=== PATIENT | female | born 1995 | race African-American/Black ===

== ENCOUNTER 2018-10-07 10:32 | Inpatient (IN) | payer MEDICAID ==
[~2018-10-07] VITALS: Ht 157.5 cm; Wt 67.6 kg
[~2018-10-07 10:32] MED LIST: ACET-2178 PO; INSU100I24 SQ; INSU100V9 SQ; KETO15VI22 PO; LEVO250T2 PO; ONDA4TAB11 PO; [UNRECOGNIZED DRUG - CODE] PO
[2018-10-07] MEDS ORDERED: ONDANSETRON HCL 4MG/2ML INJ IV STA (11:39)
[2018-10-07] MEDS ORDERED: SODIUM CHLORIDE 0.9% 1000ML BAG (SEPSIS BOLUS) IV ONE (11:45)
[2018-10-07] MEDS ORDERED: CEFTRIAXONE 1 G PREMIX 50 ML IV ONE (11:45)
[2018-10-07] MEDS ORDERED: FENTANYL CITRATE/PF 50MCG/ML 2ML VIAL IV ONE ×2 (11:45→17:45)
[2018-10-07 14:12] LABS: BASOPHILS % 0.2 % (0.0-2.0); EOSINOPHILS % 0.2 % (0.0-5.0); HEMATOCRIT. 37.7 % (36.0-48.0); HEMOGLOBIN. 12.5 g/dL (12.0-16.0); LYMPHOCYTES % 8.6 % (20.0-50.0); MEAN CORPUSCULAR HEMOGLOBIN 33.6 pg (28.0-32.0); MEAN CORPUSCULAR VOLUME 100.9 fL (81.0-99.0); MEAN PLATELET VOLUME 10.1 fl (7.4-10.4); MONOCYTES % 6.3 % (2.0-8.0); NEUTROPHILS % 84.7 % (40.0-76.0); PLATELET 241 x1000/uL (130-400); RED BLOOD CELL COUNT 3.74 mill/uL (4.2-5.4); RED CELL DISTRIBUTION WIDTH 14.2 % (11.6-14.6)
[2018-10-07 14:20] LABS: CHLORIDE 98 mEq/L (98-107)
[2018-10-07 14:26] LABS: ETHANOL BLOOD < 10 mg/dL
[2018-10-07 14:31] LABS: HCG SCREEN NEGATIVE
[2018-10-07 14:42] LABS: CLARITY URINE CLOUDY (CLEAR); COLOR URINE YELLOW (YELLOW); KETONES URINE 4+ (NEGATIVE); LEUKOCYTE ESTERASE URINE 2+ (NEGATIVE); NITRITE URINE NEGATIVE (NEGATIVE); OCCULT BLOOD URINE TRACE (NEGATIVE); PH URINE 5.5 (4.5-8.0); PROTEIN URINE NEGATIVE (NEGATIVE); SPECIFIC GRAVITY URINE 1.019 (1.005-1.030); UROBILINOGEN URINE 0.2 E.U./dL (0.2-1.0)
[2018-10-07] MEDS ORDERED: OXYCODONE HCL/ACETAMINOPHEN 5/325MG TABLET PO ONE (14:45)
[2018-10-07 14:52] LABS: *AMPHETAMINES SCREEN URINE NEGATIVE (NEGATIVE); *BARBITURATES SCREEN URINE NEGATIVE (NEGATIVE); *BENZODIAZEPINES SCREEN URINE NEGATIVE (NEGATIVE)
[2018-10-07 14:53] LABS: *COCAINE SCREEN URINE NEGATIVE (NEGATIVE); METHADONE URINE SCREEN NEGATIVE (NEGATIVE); OPIATES URINE SCREEN NEGATIVE (NEGATIVE); PHENCYCLIDINE URINE SCREEN NEGATIVE (NEGATIVE)
[2018-10-07 14:55] LABS: CANNABINOID URINE SCREEN PRESUMTIVE POSITIVE (NEGATIVE)
[2018-10-07 16:49] LABS: PARTIAL THROMBOPLASTIN TIME 32.2 sec (23.4-31.0); PROTHROMBIN TIME 10.2 sec (9.1-11.1)
[2018-10-07] MEDS ORDERED: SODIUM CHLORIDE 0.9% 1,000 ML IV ONE (17:25)
[2018-10-07] MEDS ORDERED: INSULIN REGULAR (HUMULIN R) 300UNITS/3ML SUBCUT ONE (17:30)
[2018-10-07] MEDS ORDERED: ONDANSETRON HCL 4MG/2ML INJ IV ONE (22:45)
[2018-10-07] MEDS ORDERED: KETOROLAC 15MG/ML VIAL IV ONE (22:45)
[2018-10-08] VITALS (27 sets, daily range): BP systolic 85–147; BP diastolic 44–82
[2018-10-08] MEDS ORDERED: HYDROCODONE/ACETAMINOPHEN 5/325MG TABLET PO PRN (00:30)
[2018-10-08] MEDS ORDERED: DEXTROSE 50% WATER 50ML SYRINGE IV PRN ×3 (00:30→09:30)
[2018-10-08] MEDS: SODIUM CHLORIDE 0.9% 1,000 ML IV SCH ×2 (01:29→08:29)
[2018-10-08] MEDS ORDERED: CEFEPIME 1,000 MG in DEXTROSE 5% WATER 50 ML IV SCH (03:00)
[2018-10-08] MEDS: KETOROLAC 15MG/ML VIAL IV SCH ×4 (05:07→22:58)
[2018-10-08 07:16] LABS: CHLORIDE 104 mEq/L (98-107)
[2018-10-08] MEDS ORDERED: INSULIN LISPRO 100 UNITS/ML SUBCUT SCH ×4 (07:20→17:20)
[2018-10-08] MEDS ORDERED: BLOOD SUGAR DIAGNOSTIC STRIP TEST SCH (07:20)
[2018-10-08] MEDS ORDERED: ONDANSETRON HCL 4MG/2ML INJ IV PRN (07:45)
[2018-10-08 08:54] LABS: BG BASE EXCESS -25.2 mmol/L (-2.0-2.0); BG CARBOXYHEMOGLOBIN 0.3 % (0.5-1.5); BG DEOXYHEMOGLOBIN 1.5 % (0.0-5.0); BG FRACTION INSPIRED OXYGEN 28; BG HCO3 ACT 2.9 mmol/L (22.0-26.0); BG METHEMOGLOBIN 0.2 % (0.0-1.5); BG OXYGEN SATURATION 98.5 % (92.0-98.5); BG PCO2 10.5 mmHg (35.0-45.0); BG PH 7.061 (7.350-7.450); BG PO2 152.5 mmHg (75.0-100.0); BG SAMPLE SITE RIGHT RADIAL; BG TOTAL HEMOGLOBIN 12.7 g/dL (12.0-18.0); BG VENT MODE NASAL CANNULA
[2018-10-08] MEDS ORDERED: INSULIN REGULAR (DRIP) 100 UNITS in SODIUM CHLORIDE 0.9% 100 ML IV SCH (09:24)
[2018-10-08] MEDS: BLOOD SUGAR DIAGNOSTIC STRIP TEST SCH ×14 (09:30→22:30)
[2018-10-08] MEDS ORDERED: SODIUM CHLORIDE 0.9% 1,000 ML IV ONE ×2 (09:30→10:21)
[2018-10-08] MEDS ORDERED: INSULIN REGULAR (DRIP) 100 UNITS in SODIUM CHLORIDE 0.9% 99 ML IV PRN (09:30)
[2018-10-08] MEDS ORDERED: INSULIN GLARGINE UD 100 UNITS/ML SYR SUBCUT SCH (10:00)
[2018-10-08] MEDS ORDERED: INSULIN REGULAR (DRIP) 100 UNITS in SODIUM CHLORIDE 0.9% 99 ML IV SCH (10:18)
[2018-10-08] MEDS ORDERED: SODIUM CHLORIDE 0.9% 1,000 ML IV NR ×2 (10:22→12:30)
[2018-10-08] MEDS: MORPHINE SULFATE 4 MG/ML CPJ (NOT FOR IM USE) IV PRN (10:28)
[2018-10-08] MEDS: SODIUM BICARBONATE 100 MEQ in SODIUM CHLORIDE 0.45% 1,000 ML IV SCH ×3 (12:18→20:43)
[2018-10-08] MEDS ORDERED: VANCOMYCIN 1,250 MG in DEXT 5% WATER 250 ML IV SCH (14:45)
[2018-10-08 16:18] LABS: CHLORIDE 113 mEq/L (98-107)
[2018-10-08] MEDS ORDERED: ENOXAPARIN 40MG/0.4ML SYR SUBCUT SCH (18:15)
[2018-10-08] MEDS: CEFEPIME 1,000 MG in DEXTROSE 5% WATER 50 ML IV SCH (18:59)
[2018-10-08] MEDS: VANCOMYCIN 1250MG in DEXTROSE 5% WATER 250ML IV SCH (23:00)
[2018-10-09] VITALS (25 sets, daily range): BP systolic 63–145; BP diastolic 19–133
[2018-10-09] MEDS: BLOOD SUGAR DIAGNOSTIC STRIP TEST SCH ×18 (00:09→21:00)
[2018-10-09 00:46] LABS: CHLORIDE 107 mEq/L (98-107)
[2018-10-09] MEDS: SODIUM BICARBONATE 100 MEQ in SODIUM CHLORIDE 0.45% 1,000 ML IV SCH ×3 (04:42→22:00)
[2018-10-09] MEDS: MORPHINE SULFATE 4 MG/ML CPJ (NOT FOR IM USE) IV PRN (04:49)
[2018-10-09 06:04] LABS: BASOPHILS % 0.1 % (0.0-2.0); EOSINOPHILS % 0.9 % (0.0-5.0); HEMATOCRIT. 30.7 % (36.0-48.0); HEMOGLOBIN. 10.4 g/dL (12.0-16.0); MEAN CORPUSCULAR HEMOGLOBIN 33.7 pg (28.0-32.0); MEAN CORPUSCULAR VOLUME 99.8 fL (81.0-99.0); MEAN PLATELET VOLUME 8.7 fl (7.4-10.4); MONOCYTES % 10.4 % (2.0-8.0); NEUTROPHILS % 74.6 % (40.0-76.0); PLATELET 243 x1000/uL (130-400); RED BLOOD CELL COUNT 3.07 mill/uL (4.2-5.4); RED CELL DISTRIBUTION WIDTH 14.1 % (11.6-14.6)
[2018-10-09 06:05] LABS: CHLORIDE 105 mEq/L (98-107)
[2018-10-09] MEDS: KETOROLAC 15MG/ML VIAL IV SCH ×3 (07:41→21:56)
[2018-10-09] MEDS: CEFEPIME 1,000 MG in DEXTROSE 5% WATER 50 ML IV SCH ×2 (07:42→17:54)
[2018-10-09] MEDS ORDERED: KCL 20MEQ/100ML PREMIX 100 ML IV SCH ×2 (10:00→12:00)
[2018-10-09] MEDS: VANCOMYCIN 1250MG in DEXTROSE 5% WATER 250ML IV SCH ×2 (11:18→22:54)
[2018-10-09 14:02] LABS: CHLORIDE 105 mEq/L (98-107)
[2018-10-09] MEDS ORDERED: DEXTROSE 50% WATER 50ML SYRINGE IV PRN (15:15)
[2018-10-09] MEDS ORDERED: POTASSIUM CHLORIDE 20MEQ TABLET SR PO SCH (16:00)
[2018-10-09] MEDS ORDERED: POTASSIUM CHLORIDE 20MEQ TABLET SR PO NR (17:00)
[2018-10-09] MEDS: INSULIN LISPRO 100 UNITS/ML SUBCUT SCH ×2 (17:56→21:50)
[2018-10-09] MEDS ORDERED: INSULIN REGULAR (DRIP) 100 UNITS in SODIUM CHLORIDE 0.9% 99 ML IV SCH (23:39)
[2018-10-09] MEDS ORDERED: BLOOD SUGAR DIAGNOSTIC STRIP TEST SCH (23:45)
[2018-10-10] MEDS ORDERED: CEFAZOLIN 2000MG PREMIX 50 ML IV SCH (02:00)
[2018-10-10 04:00] VITALS: BP 115/78
[2018-10-10] MEDS: SODIUM BICARBONATE 100 MEQ in SODIUM CHLORIDE 0.45% 1,000 ML IV SCH (05:50)
[2018-10-10] MEDS: BLOOD SUGAR DIAGNOSTIC STRIP TEST SCH ×2 (06:00→12:24)
[2018-10-10] MEDS: INSULIN LISPRO 100 UNITS/ML SUBCUT SCH ×2 (06:02→12:28)
[2018-10-10] MEDS: KETOROLAC 15MG/ML VIAL IV SCH ×2 (06:03→14:00)
[2018-10-10 07:48] LABS: BASOPHILS % 0.5 % (0.0-2.0); EOSINOPHILS % 1.8 % (0.0-5.0); HEMATOCRIT. 30.7 % (36.0-48.0); HEMOGLOBIN. 10.5 g/dL (12.0-16.0); LYMPHOCYTES % 25.3 % (20.0-50.0); MEAN CORPUSCULAR VOLUME 99.8 fL (81.0-99.0); MEAN PLATELET VOLUME 8.8 fl (7.4-10.4); MONOCYTES % 8.5 % (2.0-8.0); NEUTROPHILS % 63.9 % (40.0-76.0); PLATELET 242 x1000/uL (130-400); RED BLOOD CELL COUNT 3.07 mill/uL (4.2-5.4); RED CELL DISTRIBUTION WIDTH 13.7 % (11.6-14.6)
[2018-10-10 08:00] VITALS: BP 119/80
[2018-10-10] MEDS ORDERED: CEFAZOLIN 2000MG in DEXTROSE 5% WATER 100ML IV SCH (10:00)
[2018-10-10] MEDS: VANCOMYCIN 1250MG in DEXTROSE 5% WATER 250ML IV SCH (11:44)
[2018-10-10 12:00] VITALS: BP 116/74
[2018-10-10 12:20] LABS: CHLORIDE 98 mEq/L (98-107)
[2018-10-10] MEDS ORDERED: INSULIN LISPRO 100 UNITS/ML SUBCUT SCH (14:15)
[2018-10-10 16:00] VITALS: BP_SYST 114; BP_SYST 118; BP_DIAS 70
[2018-10-10] MEDS ORDERED: VANCOMYCIN 1 G PREMIX 200 ML IV SCH (22:00)
[2018-10-10] MEDS ORDERED: INSULIN GLARGINE UD 100 UNITS/ML SYR SUBCUT SCH (22:00)
== END 2018-10-10 16:30 | disposition home or self-care (01) | DRG 720 ==
LOC: ER 10:32 → 6EST 15:15 → EDBEDREQ 15:17 → ENRESERV 22:42 → CVICU 10-08 08:52 → 8WST 10-09 23:36
PROVIDERS: ADMIT Internal Medicine; ATTEND Internal Medicine
DX: A41.9 Sepsis, unspecified organism (principal); E10.10 Type 1 diabetes mellitus with ketoacidosis without coma; N12 Tubulo-interstitial nephritis, not specified as acute or chronic; Z79.1 Long term (current) use of non-steroidal anti-inflammatories (NSAID); Z79.899 Other long term (current) drug therapy; Z79.4 Long term (current) use of insulin; Z87.440 Personal history of urinary (tract) infections; Z79.2 Long term (current) use of antibiotics
CPT/HCPCS: 36415; 36600; 71045; 74176; 80048; 80202; 80305; 81025; 82010; 82375; 82805; 82962; 83036; 83605; 83880; 84132; 84145; 84484; 84703; 87077; 87186; 93005; 96361; 96365; 96366; 96375; 96376; 99291; G0482; J0690; J0692; J0696; J1650; J1815; J1885; J2270; J2405; J3010; J3370; J3480; J3490; J7030; J7050; J7060

== ENCOUNTER 2019-01-18 06:08 | Emergency (ER) | payer MEDICAID ==
[~2019-01-18] VITALS: Ht 157.5 cm; Wt 67.0 kg
[2019-01-18 07:09] LABS: CLARITY URINE CLEAR (CLEAR); COLOR URINE YELLOW (YELLOW); KETONES URINE 2+ (NEGATIVE); LEUKOCYTE ESTERASE URINE NEGATIVE (NEGATIVE); NITRITE URINE NEGATIVE (NEGATIVE); OCCULT BLOOD URINE NEGATIVE (NEGATIVE); PH URINE 5.5 (4.5-8.0); PROTEIN URINE NEGATIVE (NEGATIVE); SPECIFIC GRAVITY URINE 1.027 (1.005-1.030); UROBILINOGEN URINE 0.2 E.U./dL (0.2-1.0)
[2019-01-18] MEDS ORDERED: SODIUM CHLORIDE 0.9% 1,000 ML IV ONE ×2 (07:14→07:53)
[2019-01-18 07:38] LABS: BASOPHILS % 0.5 % (0.0-2.0); EOSINOPHILS % 1.3 % (0.0-5.0); HEMATOCRIT. 32.6 % (36.0-48.0); HEMOGLOBIN. 10.7 g/dL (12.0-16.0); LYMPHOCYTES % 21.1 % (20.0-50.0); MEAN CORPUSCULAR VOLUME 103.6 fL (81.0-99.0); MEAN PLATELET VOLUME 8.7 fl (7.4-10.4); MONOCYTES % 6.7 % (2.0-8.0); NEUTROPHILS % 70.4 % (40.0-76.0); PLATELET 287 x1000/uL (130-400); RED BLOOD CELL COUNT 3.14 mill/uL (4.2-5.4); RED CELL DISTRIBUTION WIDTH 15.7 % (11.6-14.6)
[2019-01-18 07:41] LABS: CHLORIDE 102 mEq/L (98-107)
[2019-01-18 07:47] LABS: HCG SCREEN NEGATIVE
[2019-01-18] MEDS ORDERED: INSULIN REGULAR (DRIP) 100 UNITS in SODIUM CHLORIDE 0.9% 99 ML IV SCH (08:00)
[2019-01-18 09:21] LABS: BG BASE EXCESS -3.9 mmol/L (-2.0-2.0); BG CARBOXYHEMOGLOBIN 0.6 % (0.5-1.5); BG FRACTION INSPIRED OXYGEN 21; BG HCO3 ACT 18.5 mmol/L (22.0-26.0); BG METHEMOGLOBIN 0.2 % (0.0-1.5); BG OXYHEMOGLOBIN 97.2 % (94.0-97.0); BG PCO2 26.5 mmHg (35.0-45.0); BG PH 7.462 (7.350-7.450); BG PO2 110.4 mmHg (75.0-100.0); BG SAMPLE SITE RIGHT BRACHIAL; BG TOTAL HEMOGLOBIN 12.2 g/dL (12.0-18.0); BG VENT MODE ROOM AIR
[2019-01-18] MEDS ORDERED: IPRATROPIUM/ALBUTEROL 0.5-3(2.5)MG/3ML NEB INH PRN (12:00)
[2019-01-18] MEDS ORDERED: ONDANSETRON HCL 4MG/2ML INJ IV PRN (12:00)
[2019-01-18] MEDS ORDERED: CLONIDINE 0.1MG TABLET PO PRN (12:00)
[2019-01-18] MEDS ORDERED: ACETAMINOPHEN 325MG TABLET PO PRN (12:00)
[2019-01-18] MEDS ORDERED: HYDROCODONE/ACETAMINOPHEN 5/325MG TABLET PO PRN (12:00)
[2019-01-18] MEDS ORDERED: DOCUSATE SODIUM 100MG CAPSULE PO PRN (12:00)
[2019-01-18] MEDS ORDERED: LORAZEPAM 0.5MG TABLET PO PRN (12:00)
[2019-01-18 12:27] LABS: CHLORIDE 107 mEq/L (98-107)
[2019-01-18] MEDS: INSULIN LISPRO 100 UNITS/ML SUBCUT SCH ×2 (12:50→14:13)
[2019-01-18 13:09] LABS: FOLIC ACID (FOLATE) SERUM 16.8 ng/mL (>5.38)
[2019-01-18] MEDS ORDERED: DEXTROSE 50% WATER 50ML SYRINGE IV PRN (14:15)
[2019-01-18 15:59] LABS: *AMPHETAMINES SCREEN URINE NEGATIVE (NEGATIVE); *BARBITURATES SCREEN URINE NEGATIVE (NEGATIVE); *BENZODIAZEPINES SCREEN URINE NEGATIVE (NEGATIVE); OPIATES URINE SCREEN NEGATIVE (NEGATIVE); PHENCYCLIDINE URINE SCREEN NEGATIVE (NEGATIVE)
[2019-01-18 16:00] LABS: *COCAINE SCREEN URINE NEGATIVE (NEGATIVE); METHADONE URINE SCREEN NEGATIVE (NEGATIVE)
[2019-01-18 16:02] LABS: CANNABINOID URINE SCREEN PRESUMTIVE POSITIVE (NEGATIVE)
[2019-01-18 16:09] LABS: CHLORIDE 109 mEq/L (98-107)
[2019-01-18 16:15] LABS: TOTAL IRON BINDING CAPACITY 331 ug/dL (250-450)
[2019-01-18] MEDS ORDERED: BLOOD SUGAR DIAGNOSTIC STRIP TEST SCH (17:00)
[2019-01-18 18:20] LABS: CHLORIDE 108 mEq/L (98-107)
[2019-01-18] MEDS ORDERED: INSULIN LISPRO (LOW DOSE) 100 UNITS/ML SUBCUT SCH (18:20)
[2019-01-18 18:25] VITALS: BP 130/80
== END 2019-01-18 13:00 | disposition left against medical advice (07) ==
LOC: ER 06:08 → EDBEDREQTM 08:47 → EDBEDREQ 08:47 → ER 13:00 → EDBEDREQTM 13:59 → EDBEDREQSVC 13:59 → EDBEDREQ 16:32 → CANBEDREQ 19:04
DX: E11.10 Type 2 diabetes mellitus with ketoacidosis without coma (principal); R11.2 Nausea with vomiting, unspecified; R51 Headache; F12.10 Cannabis abuse, uncomplicated; Z79.4 Long term (current) use of insulin; Z79.899 Other long term (current) drug therapy
CPT/HCPCS: 36415; 36600; 71045; 80048; 80053; 80305; 81003; 81025; 82010; 82375; 82607; 82728; 82746; 82805; 82962; 83540; 83550; 83690; 84703; 85025; 93005; 96361; 96365; 96366; 96372; 99291; J1815; J7030; J7050; Z7610

== ENCOUNTER 2020-02-03 09:26 | Inpatient (IN) | payer MEDICAID ==
[~2020-02-03] VITALS: Ht 160 cm; Wt 70.3 kg
[~2020-02-03 09:26] MED LIST changes: -ACET-2178 PO; +TOPUD PO
[2020-02-03] MEDS ORDERED: INSU100I24 SQ (09:41)
[2020-02-03] MEDS ORDERED: [UNRECOGNIZED DRUG - OTHER] (09:41)
[2020-02-03] MEDS ORDERED: INSU100V34 SQ (09:41)
[2020-02-03] MEDS ORDERED: SODIUM CHLORIDE 0.9% 1,000 ML IV ONE (10:31)
[2020-02-03] MEDS ORDERED: ACETAMINOPHEN 325MG TABLET PO ONE (10:45)
[2020-02-03 10:51] LABS: BASOPHILS % 0.5 % (0.0-2.0); EOSINOPHILS % 0.2 % (0.0-5.0); HEMATOCRIT. 32.4 % (36.0-48.0); LYMPHOCYTES % 8.2 % (20.0-50.0); MEAN CORPUSCULAR HEMOGLOBIN 33.4 pg (28.0-32.0); MEAN CORPUSCULAR VOLUME 98.5 fL (81.0-99.0); MEAN PLATELET VOLUME 8.8 fl (7.4-10.4); MONOCYTES % 11.5 % (2.0-8.0); NEUTROPHILS % 79.6 % (40.0-76.0); PLATELET 263 x1000/uL (130-400); RED BLOOD CELL COUNT 3.29 mill/uL (4.2-5.4); RED CELL DISTRIBUTION WIDTH 16.7 % (11.6-14.6)
[2020-02-03 10:53] LABS: CLARITY URINE CLEAR (CLEAR); COLOR URINE YELLOW (YELLOW); KETONES URINE 4+ (NEGATIVE); LEUKOCYTE ESTERASE URINE TRACE (NEGATIVE); NITRITE URINE NEGATIVE (NEGATIVE); OCCULT BLOOD URINE 1+ (NEGATIVE); PH URINE 5.5 (4.5-8.0); PROTEIN URINE 2+ (NEGATIVE); SPECIFIC GRAVITY URINE 1.021 (1.005-1.030)
[2020-02-03 10:57] LABS: CHLORIDE 96 mEq/L (98-107)
[2020-02-03] MEDS ORDERED: CEFTRIAXONE 1 G PREMIX 50 ML IV ONE (11:45)
[2020-02-03] MEDS ORDERED: INSULIN REGULAR (HUMULIN R) 300UNITS/3ML IV ONE (12:00)
[2020-02-03 12:04] LABS: BG BASE EXCESS -12.3 mmol/L (-2.0-2.0); BG CARBOXYHEMOGLOBIN 0.3 % (0.5-1.5); BG DEOXYHEMOGLOBIN 1.9 % (0.0-5.0); BG FRACTION INSPIRED OXYGEN 21; BG HCO3 ACT 11.4 mmol/L (22.0-26.0); BG METHEMOGLOBIN 0.2 % (0.0-1.5); BG OXYGEN SATURATION 98.1 % (92.0-98.5); BG OXYHEMOGLOBIN 97.6 % (94.0-97.0); BG PH 7.354 (7.350-7.450); BG PO2 109.4 mmHg (75.0-100.0); BG SAMPLE SITE RIGHT BRACHIAL; BG TOTAL HEMOGLOBIN 10.5 g/dL (12.0-18.0); BG VENT MODE ROOM AIR
[2020-02-03 13:30] VITALS: BP 132/77
[2020-02-03] MEDS ORDERED: SODIUM BICARBONATE 8.4% 1 MEQ/ML 50ML SYR IV NR (13:34)
[2020-02-03] MEDS ORDERED: DEXTROSE 50% WATER 50ML SYRINGE IV PRN (14:15)
[2020-02-03] MEDS: SODIUM CHLORIDE 0.9% 1,000 ML IV SCH (14:30)
[2020-02-03 14:41] VITALS: BP 132/77
[2020-02-03] MEDS ORDERED: ACET650T37 PO (15:49)
[2020-02-03] MEDS ORDERED: ONDA4TAB5 PO (15:50)
[2020-02-03 16:06] VITALS: BP 128/80
[2020-02-03] MEDS ORDERED: MORPHINE SULFATE 2 MG/ML CPJ (NOT FOR IM USE) IV NR (16:30)
[2020-02-03] MEDS ORDERED: CEFTRIAXONE SODIUM 1 G/VIAL IM SCH (16:30)
[2020-02-03] MEDS: ONDANSETRON HCL 4MG/2ML INJ IV PRN ×2 (16:53→21:09)
[2020-02-03] MEDS ORDERED: ONDANSETRON HCL 4MG/2ML INJ IV PRN (17:15)
[2020-02-03] MEDS ORDERED: CLONIDINE 0.1MG TABLET PO PRN (17:15)
[2020-02-03] MEDS ORDERED: ZOLPIDEM TARTRATE 5MG TABLET PO PRN (17:15)
[2020-02-03] MEDS ORDERED: POTASSIUM CHLORIDE 20MEQ TABLET SR PO NR (17:15)
[2020-02-03] MEDS: CITRIC ACID/SODIUM CITRATE SOLN 30ML UDC PO SCH (17:22)
[2020-02-03] MEDS: BLOOD SUGAR DIAGNOSTIC STRIP TEST SCH ×2 (17:59→21:09)
[2020-02-03] MEDS: INSULIN LISPRO 100 UNITS/ML SUBCUT SCH ×2 (18:01→21:18)
[2020-02-03 18:40] LABS: HEMATOCRIT. 32.2 % (36.0-48.0); HEMOGLOBIN. 10.8 g/dL (12.0-16.0); MEAN CORPUSCULAR HEMOGLOBIN 33.7 pg (28.0-32.0); MEAN CORPUSCULAR VOLUME 100.7 fL (81.0-99.0); MEAN PLATELET VOLUME 8.8 fl (7.4-10.4); PLATELET 255 x1000/uL (130-400)
[2020-02-03 18:44] LABS: CHLORIDE 100 mEq/L (98-107)
[2020-02-03 19:14] LABS: PLATELET ESTIMATE NORMAL
[2020-02-03 20:00] VITALS: BP 122/76
[2020-02-03] MEDS: ENOXAPARIN 40MG/0.4ML SYR SUBCUT SCH (21:09)
[2020-02-03] MEDS: KETOROLAC 30MG/ML VIAL IV SCH (22:28)
[2020-02-03] MEDS: ACETAMINOPHEN 325MG TABLET PO PRN (22:29)
[2020-02-03] MEDS: INSULIN GLARGINE UD 100 UNITS/ML SYR SUBCUT SCH (22:38)
[2020-02-04] VITALS: BP 105/63
[2020-02-04 04:00] VITALS: BP 111/72
[2020-02-04] MEDS: SODIUM CHLORIDE 0.9% 1,000 ML IV SCH ×3 (04:21→22:24)
[2020-02-04] MEDS: KETOROLAC 30MG/ML VIAL IV SCH ×3 (06:16→22:13)
[2020-02-04 06:22] LABS: HEMATOCRIT. 30.6 % (36.0-48.0); HEMOGLOBIN. 10.4 g/dL (12.0-16.0); MEAN CORPUSCULAR HEMOGLOBIN 33.4 pg (28.0-32.0); PLATELET 242 x1000/uL (130-400); RED BLOOD CELL COUNT 3.12 mill/uL (4.2-5.4); RED CELL DISTRIBUTION WIDTH 16.4 % (11.6-14.6)
[2020-02-04] MEDS: BLOOD SUGAR DIAGNOSTIC STRIP TEST SCH ×4 (06:30→21:00)
[2020-02-04 06:44] LABS: CHLORIDE 103 mEq/L (98-107)
[2020-02-04 08:00] VITALS: BP 108/63
[2020-02-04] MEDS: CITRIC ACID/SODIUM CITRATE SOLN 30ML UDC PO SCH ×3 (08:41→17:00)
[2020-02-04] MEDS: INSULIN LISPRO 100 UNITS/ML SUBCUT SCH ×4 (08:46→22:22)
[2020-02-04] MEDS ORDERED: CEFTRIAXONE SODIUM 1 G/VIAL IV SCH (09:00)
[2020-02-04] MEDS: ACETAMINOPHEN 325MG TABLET PO PRN ×2 (09:08→19:40)
[2020-02-04 11:40] LABS: PLATELET ESTIMATE NORMAL
[2020-02-04 12:00] VITALS: BP 133/66
[2020-02-04] MEDS ORDERED: CEFTRIAXONE 1 G PREMIX 50 ML IV SCH (12:00)
[2020-02-04] MEDS: CEFEPIME 2,000 MG in DEXT 5% WATER 100 ML IV SCH (12:55)
[2020-02-04 15:52] VITALS: BP 122/83
[2020-02-04 20:17] VITALS: BP 127/85
[2020-02-04] MEDS: ENOXAPARIN 40MG/0.4ML SYR SUBCUT SCH (20:56)
[2020-02-04] MEDS: INSULIN GLARGINE UD 100 UNITS/ML SYR SUBCUT SCH (22:22)
[2020-02-05] VITALS (7 sets, daily range): BP systolic 117–130; BP diastolic 72–92
[2020-02-05] MEDS: CEFEPIME 2,000 MG in DEXT 5% WATER 100 ML IV SCH ×2 (00:25→12:37)
[2020-02-05] MEDS: HYDROCODONE/ACETAMINOPHEN 5/325MG TABLET PO PRN ×2 (01:04→13:34)
[2020-02-05] MEDS: KETOROLAC 30MG/ML VIAL IV SCH ×2 (05:20→12:37)
[2020-02-05] MEDS: BLOOD SUGAR DIAGNOSTIC STRIP TEST SCH ×3 (07:51→17:20)
[2020-02-05] MEDS: CITRIC ACID/SODIUM CITRATE SOLN 30ML UDC PO SCH ×3 (08:29→17:00)
[2020-02-05] MEDS: INSULIN LISPRO 100 UNITS/ML SUBCUT SCH ×3 (08:31→17:50)
[2020-02-05] MEDS: ONDANSETRON HCL 4MG/2ML INJ IV PRN (09:56)
[2020-02-05] MEDS: ACETAMINOPHEN 325MG TABLET PO PRN (09:57)
[2020-02-05] MEDS: SODIUM CHLORIDE 0.9% 1,000 ML IV SCH (12:37)
== END 2020-02-05 18:01 | disposition home or self-care (01) | DRG 720 ==
LOC: ER 09:26 → 6WST 12:04 → ENRESERV 12:41
PROVIDERS: ADMIT Internal Medicine; ATTEND Internal Medicine
DX: A41.9 Sepsis, unspecified organism (principal); E10.65 Type 1 diabetes mellitus with hyperglycemia; E87.1 Hypo-osmolality and hyponatremia; E86.9 Volume depletion, unspecified; E87.6 Hypokalemia; D64.9 Anemia, unspecified; N10 Acute pyelonephritis
CPT/HCPCS: 36415; 36600; 71045; 74176; 80048; 80053; 80061; 81003; 82375; 82533; 82805; 82962; 83036; 83930; 84132; 84145; 84443; 85025; 93970; 96361; 96365; 96375; 99291; J0692; J0696; J1650; J1815; J1885; J2270; J2405; J3490; J7030; J7060

== ENCOUNTER 2021-09-28 08:15 | Emergency (ER) | payer MEDICAID ==
[~2021-09-28] VITALS: Ht 157.5 cm; Wt 70.0 kg
[~2021-09-28 08:15] MED LIST changes: +ACET650T37 PO; +INSU100V34 SQ; -INSU100V9 SQ; -KETO15VI22 PO; -ONDA4TAB11 PO; +ONDA4TAB5 PO; -TOPUD PO; -[UNRECOGNIZED DRUG - CODE] PO
[2021-09-28] MEDS ORDERED: SODIUM CHLORIDE 0.9% 1,000 ML IV ONE (08:45)
[2021-09-28] MEDS ORDERED: CEFTRIAXONE 1 G PREMIX 50 ML IV ONE (08:45)
[2021-09-28 08:48] LABS: CLARITY URINE CLOUDY (CLEAR); COLOR URINE YELLOW (YELLOW); KETONES URINE NEGATIVE (NEGATIVE); LEUKOCYTE ESTERASE URINE 2+ (NEGATIVE); NITRITE URINE POSITIVE (NEGATIVE); OCCULT BLOOD URINE 3+ (NEGATIVE); PROTEIN URINE NEGATIVE (NEGATIVE); SPECIFIC GRAVITY URINE 1.017 (1.005-1.030); UROBILINOGEN URINE 0.2 E.U./dL (0.2-1.0)
[2021-09-28 09:06] LABS: BASOPHILS % 0.6 % (0.0-2.0); CHLORIDE 104 mEq/L (98-107); EOSINOPHILS % 2.4 % (0.0-5.0); HEMATOCRIT. 35.6 % (36.0-48.0); HEMOGLOBIN. 12.3 g/dL (12.0-16.0); LYMPHOCYTES % 29.5 % (20.0-50.0); MEAN CORPUSCULAR HEMOGLOBIN 36.2 pg (28.0-32.0); MEAN CORPUSCULAR VOLUME 104.6 fL (81.0-99.0); MEAN PLATELET VOLUME 8.4 fl (7.4-10.4); MONOCYTES % 8.1 % (2.0-8.0); NEUTROPHILS % 59.4 % (40.0-76.0); PLATELET 292 x1000/uL (130-400); RED CELL DISTRIBUTION WIDTH 13.8 % (11.6-14.6)
[2021-09-28 09:13] LABS: BETA HYDROXYBUTYRATE 0.1 mMol/L (0.0-0.3)
[2021-09-28] MEDS ORDERED: CEFI400C MT (09:50)
[2021-09-28] MEDS ORDERED: ONDA4TAB5 MT (09:51)
[2021-09-28] MEDS ORDERED: HYDR-4001 MT (09:51)
[2021-09-28 10:51] VITALS: BP 127/83
== END 2021-09-28 10:54 | disposition home or self-care (01) ==
LOC: ER 08:15
DX: N39.0 Urinary tract infection, site not specified (principal); E10.65 Type 1 diabetes mellitus with hyperglycemia; F12.10 Cannabis abuse, uncomplicated; I10 Essential (primary) hypertension; Z79.899 Other long term (current) drug therapy
CPT/HCPCS: 36415; 80053; 81003; 82010; 83690; 83880; 84484; 85025; 87077; 87086; 87186; 96365; 99284; J0696; J7030

== ENCOUNTER 2022-05-25 02:27 | Emergency (ER) | payer MEDICAID ==
[~2022-05-25] VITALS: Ht 157.5 cm; Wt 65.3 kg
[~2022-05-25 02:27] MED LIST changes: +ACET-3163 PO; -ACET650T37 PO; +CEFI400C MT; +HYDR-4001 MT; +ONDA4TAB5 MT
[2022-05-25] MEDS ORDERED: ACETAMINOPHEN 325MG TABLET PO STA (05:31)
[2022-05-25 05:58] LABS: BASOPHILS % 0.3 % (0.0-2.0); EOSINOPHILS % 2.1 % (0.0-5.0); HEMATOCRIT. 34.9 % (36.0-48.0); HEMOGLOBIN. 11.9 g/dL (12.0-16.0); LYMPHOCYTES % 19.8 % (20.0-50.0); MEAN CORPUSCULAR HEMOGLOBIN 36.5 pg (28.0-32.0); MEAN CORPUSCULAR VOLUME 107.5 fL (81.0-99.0); MEAN PLATELET VOLUME 8.7 fl (7.4-10.4); MONOCYTES % 7.4 % (2.0-8.0); NEUTROPHILS % 70.4 % (40.0-76.0); PLATELET 189 x1000/uL (130-400); RED BLOOD CELL COUNT 3.25 mill/uL (4.2-5.4); RED CELL DISTRIBUTION WIDTH 14.4 % (11.6-14.6)
[2022-05-25 06:03] LABS: CHLORIDE 101 mEq/L (98-107)
[2022-05-25 06:18] LABS: HCG SCREEN NEGATIVE
[2022-05-25] MEDS ORDERED: IBUPROFEN 400MG TABLET PO ONE (08:30)
[2022-05-25 08:39] LABS: CLARITY URINE CLEAR (CLEAR); COLOR URINE YELLOW (YELLOW); KETONES URINE NEGATIVE (NEGATIVE); LEUKOCYTE ESTERASE URINE NEGATIVE (NEGATIVE); NITRITE URINE NEGATIVE (NEGATIVE); OCCULT BLOOD URINE NEGATIVE (NEGATIVE); PROTEIN URINE NEGATIVE (NEGATIVE); SPECIFIC GRAVITY URINE 1.019 (1.005-1.030); UROBILINOGEN URINE 0.2 E.U./dL (0.2-1.0)
[2022-05-25] MEDS ORDERED: NITR-87 PO (09:08)
[2022-05-25] MEDS ORDERED: IBUP-2028 PO (09:08)
[2022-05-25 09:30] VITALS: BP 137/84
== END 2022-05-25 09:55 | disposition home or self-care (01) ==
LOC: ER 02:27
DX: N39.0 Urinary tract infection, site not specified (principal); E11.9 Type 2 diabetes mellitus without complications; Z79.4 Long term (current) use of insulin
CPT/HCPCS: 36415; 80053; 81003; 82962; 84703; 85025; 99283